=== PATIENT | male | born 1975 | race Caucasian/White ===

== ENCOUNTER 2016-12-12 08:53 | Day surgery (SDC) | payer BC ==
[2016-12-12] MEDS ORDERED: IV START KIT ONE (10:11)
[2016-12-12] MEDS ORDERED: LACTATED RINGERS 1,000 ML ONE (10:11)
[2016-12-12] MEDS ORDERED: PROPOFOL 40 ML IV ONE (11:31)
[2016-12-12] MEDS ORDERED: LIDOCAINE Viscous 2% 15 ML UDCUP ONE (11:38)
[2016-12-12 21:14] LABS: HELICOBACTER PYLORII DETECTION NEGATIVE (NEGATIVE)
--- NOTE | 2016-12-14 09:35 | SURGPATH ---
[facility] [address] [place] [id number] Patient Name: ENRRIQUE MORGAN MR#: [id number] : 1975 Gender: M Specimen #: [id number] Collected: 12/12/2016 Received: 12/13/2016 Reported: 12/14/2016 Submitting Phys: EMMA ROWLEY Copy To Phys: [facility] Clinical History / Pre-Operative Diagnosis: GERD Specimen Source / Surgical Procedure Performed: #1-PYLORIC SPHINCTER POLYP; #2-DUODENAL Interpretation: 1. STOMACH, PYLORIC SPHINCTER POLYP, BIOPSY: - FOCAL ACTIVE GASTRITIS WITH REACTIVE EPITHELIAL CHANGES 2. DUODENUM, BIOPSY: - SMALL BOWEL MUCOSA WITH NO DIAGNOSTIC ABNORMALITY Electronically Signed Out Deann Herron M.D. Gross Description: #1 The specimen is received in a formalin filled container labeled with the patient's name and "pyloric sphincter polyp". Two browning biopsies are 0.3 and 0.4 cm. Totally embedded in cassette #1. #2 The specimen is received in a formalin filled container labeled with the patient's name and "duodenal". A single browning biopsy is 0.3 cm. Totally embedded in cassette #2. Rupinder Hernandez Microscopic Description: 1. Sections show fragments of gastric mucosa with focal active inflammation and reactive epithelial changes. No Helicobacter organisms are identified and there is no intestinal metaplasia or dysplasia. 2. Sections show fragments of small bowel mucosa with long and well preserved villous processes. There is no significant inflammation and lymphocytes are not increased within the epithelium. No infectious organisms are identified and there is no dysplasia. 1: 51890 2: 91586 K31.7
== END 2016-12-12 12:50 | disposition home or self-care (01) ==
LOC: SDC 08:53
PROVIDERS: ATTEND Family Medicine
PROC: 0DB78ZX Excision of Stomach, Pylorus, Via Natural or Artificial Opening Endoscopic, Diagnostic (ICD-10-PCS; principal; 2016-12-12)
PROC: 0DB98ZX Excision of Duodenum, Via Natural or Artificial Opening Endoscopic, Diagnostic (ICD-10-PCS; 2016-12-12)
DX: K21.0 Gastro-esophageal reflux disease with esophagitis (principal); K44.9 Diaphragmatic hernia without obstruction or gangrene; K29.00 Acute gastritis without bleeding; K31.7 Polyp of stomach and duodenum; Z79.899 Other long term (current) drug therapy; I10 Essential (primary) hypertension
CPT/HCPCS: 43239; 87081; A9270; J7120